=== PATIENT | female | born 1970 | race Two or more races ===

== ENCOUNTER 2019-05-24 13:00 | Observation (INO) | payer OTHER ==
[~2019-05-24] VITALS: Ht 162.6 cm; Wt 79.4 kg
[2019-05-24 17:18] VITALS: BP 154/78
[2019-05-24 17:21] LABS: BASOPHILS % (AUTO) 0.9 % (0.0-5.0); EOSINOPHILS % (AUTO) 2.7 % (0.0-8.0); HEMATOCRIT 32.7 % (36-48); LYMPHOCYTES % (AUTO) 43.1 % (21.0-51.0); MEAN CORPUSCULAR HEMOGLOBIN 23.3 pg (27.0-33.0); MEAN CORPUSCULAR HGB CONC 30.6 g/dL (32.0-36.0); MONOCYTES % (AUTO) 11.9 % (3.0-13.0); PLATELET COUNT (AUTO) 389 K/uL (130-400); RED CELL DISTRIBUTION WIDTH 23.7 % (11.0-15.5); WHITE BLOOD COUNT (AUTO) 7.7 K/uL (4.8-10.8)
[2019-05-24] MEDS ORDERED: FERR1TAB54 PO (18:06)
[2019-05-26] VITALS (19 sets, daily range): BP systolic 105–178; BP diastolic 55–102
[2019-05-26] MEDS ORDERED: CALDOLOR 800MG+NS 250ML 250 ML IV PRN (06:00)
[2019-05-26] MEDS: LACTATED RINGERS 1000ML 1,000 ML IV SCH ×2 (07:06→08:34)
[2019-05-26] MEDS ORDERED: DEXAMETHASONE SOD PHOSPHATE 10MG/ML 1ML VIAL ONE (08:00)
[2019-05-26] MEDS ORDERED: LIDOCAINE PF 2% 5ML ABBOJECT ONE (08:00)
[2019-05-26] MEDS ORDERED: CEFAZOLIN SODIUM 1 GM VIAL IVP ONE (08:00)
[2019-05-26] MEDS ORDERED: ROCURONIUM 10MG/1ML SYR 10 MG/ML ML ONE (08:01)
[2019-05-26] MEDS ORDERED: PROPOFOL 10 MG/ML 20ML VIAL IV ONE (08:01)
[2019-05-26] MEDS ORDERED: MIDAZOLAM HCL 1 MG/ML 2ML VIAL ONE (08:01)
[2019-05-26] MEDS ORDERED: FENTANYL CITRATE PF 50 MCG/1 ML 2ML VIAL ONE ×2 (08:01→08:35)
[2019-05-26] MEDS ORDERED: ONDANSETRON HCL 4 MG/2 ML VIAL ONE (08:01)
[2019-05-26] MEDS ORDERED: ESTROGENS,CONJUGATED 0.625 MG/GM 42.5 GM VAG CRM VG ONE (09:45)
[2019-05-26] MEDS ORDERED: NEOSTIGMINE 5MG/5ML SYR IV ONE (09:57)
[2019-05-26] MEDS ORDERED: GLYCOPYRROLATE 1 MG/5 ML SYRINGE ONE (09:57)
[2019-05-26] MEDS ORDERED: ACETAMINOPHEN-CODEINE 300/30MG TAB PO PRN ×2 (10:15)
[2019-05-26] MEDS ORDERED: ONDANSETRON HCL 4 MG/2 ML VIAL IVP PRN (10:15)
[2019-05-26] MEDS ORDERED: PROMETHAZINE HCL 25 MG/ML 1ML AMPULE IM PRN ×2 (10:15)
[2019-05-26] MEDS ORDERED: IBUPROFEN 800 MG TAB PO PRN (10:15)
[2019-05-26] MEDS ORDERED: SIMETHICONE 80 MG TAB.CHEW PO PRN (10:15)
[2019-05-26] MEDS ORDERED: BISACODYL 10 MG SUPP.RECT RC PRN (10:15)
[2019-05-26] MEDS ORDERED: MEPERIDINE-PF 75 MG/ML SYG IM PRN (10:15)
[2019-05-26] MEDS ORDERED: HYDROCODONE/ACETAMINOPHEN 5/325 MG TAB PO PRN (10:15)
[2019-05-26] MEDS ORDERED: HYDRALAZINE HCL 20 MG/ML VIAL ONE (10:30)
[2019-05-26] MEDS ORDERED: MEPERIDINE-PF 25 MG/ML SYG ONE ×2 (10:37→13:12)
[2019-05-26] MEDS: DEXTROSE 5 %-0.45 % NACL 1,000 ML IV PRN ×2 (11:56→18:24)
[2019-05-26] MEDS ORDERED: MEPERIDINE-PF 50 MG/ML SYG ONE (13:12)
[2019-05-26] MEDS: CALDOLOR 800MG+NS 250ML 250 ML IV SCH (18:20)
[2019-05-26] MEDS: DOCUSATE SODIUM 100 MG CAP PO PRN (23:04)
[2019-05-27] MEDS: CALDOLOR 800MG+NS 250ML 250 ML IV SCH (02:08)
[2019-05-27 03:10] VITALS: BP 124/77
[2019-05-27] MEDS: DEXTROSE 5 %-0.45 % NACL 1,000 ML IV PRN (06:20)
[2019-05-27 07:02] LABS: HEMATOCRIT 24.1 % (36-48); MEAN CORPUSCULAR HEMOGLOBIN 23.6 pg (27.0-33.0); MEAN CORPUSCULAR HGB CONC 30.7 g/dL (32.0-36.0); MEAN CORPUSCULAR VOLUME 76.8 fL (79-99); PLATELET COUNT (AUTO) 306 K/uL (130-400); RED BLOOD CELL COUNT(AUTO) 3.14 MIL/uL (4.00-5.50); RED CELL DISTRIBUTION WIDTH 24.3 % (11.0-15.5); WHITE BLOOD COUNT (AUTO) 11.3 K/uL (4.8-10.8)
--- NOTE | 2019-05-27 07:50 | NUR ---
Monroe: Monroe Catheter taken out patient tolerated well. Vaginal packing taken out with scant bloody discharges reddish brown. Patient inform to start walking call for help if needed.
[2019-05-27 08:00] VITALS: BP 125/70
--- NOTE | 2019-05-27 08:00 | NUR ---
DR. HARTMANN ROUNDED AND DISCHARGED PATIENT TO HOME. PATIENT VERBALIZED DOING WELL AND WANTING TO GO HOME TODAY.
[2019-05-27] MEDS ORDERED: AMMONIA 1 EA AMP IH ONE (08:44)
[2019-05-27] MEDS ORDERED: SIMETHICONE 80 MG TAB.CHEW PO PRN (09:30)
[2019-05-27] MEDS: DOCUSATE SODIUM 100 MG CAP PO PRN (09:56)
[2019-05-27] MEDS ORDERED: IBUPROFEN 800 MG TAB PO SCH (10:15)
--- NOTE | 2019-05-27 11:00 | NUR ---
PATIENT UP AND VOIDED FOR SECOND TIME 600CC. OF CLEAR YELLOW URINE. INDICATED HAVING PROBLEMS PASSING GAS AND WAS MADE AWARE OF DULCOLAX SUPPOSITORY AVAILABLE. INDICATED WANTING PRUNE JUICE AND WAS GIVEN WARM PRUNE JUICE.
[2019-05-27 11:31] VITALS: BP 141/74
--- NOTE | 2019-05-27 13:00 | NUR ---
PATIENT WAS GIVEN DISCHARGE INSTRUCTIONS AND SCRIPT HAD BEEN GIVEN DURING LAST VISIT TO DR. HARTMANN. PATIENT IS STABLE AND WAS UP AND WALKING IN HALLWAY.
--- NOTE | 2019-05-27 16:30 | NUR ---
PATIENT WAS TAKEN VIA W/C TO FAMILY VEHICLE AND WAS DISCHARGED TO SPOUSE IN STABLE CONDITION. PATIENT DENIES PAIN AND STATES HAVING A SMALL BM AFTER DULCOLAX SUPPOSITORY.
== END 2019-05-27 16:30 | disposition home or self-care (01) ==
LOC: EDSTATUS 13:00 → DAHIP 05-26 06:37 → WSH 05-26 11:10
PROVIDERS: ADMIT Obstetrics & Gynecology; ATTEND Obstetrics & Gynecology
DX: D25.9 Leiomyoma of uterus, unspecified (principal); N92.0 Excessive and frequent menstruation with regular cycle; N39.3 Stress incontinence (female) (male); N81.10 Cystocele, unspecified; N85.4 Malposition of uterus; E11.9 Type 2 diabetes mellitus without complications; I10 Essential (primary) hypertension; Z79.899 Other long term (current) drug therapy
CPT/HCPCS: 36415 ×2; 57220; 58262; 84703; 85025; 85027; 86850; 86900; 86901; 88307; 96365; 96366 ×2; 96372; A4215; A4221; A4222; A4223; A4351; A4510; A4600; A4663; G0378 ×27; J0360; J1100; J1741 ×3; J2001; J2175 ×3; J2250; J2405; J2550; J2704; J2710; J3010 ×2; J3490 ×2; J7120 ×2